=== PATIENT | female | born 1955 ===

== ENCOUNTER 2025-06-06 07:00 | Inpatient (IN) | payer OTHER ==
[~2025-06-06] VITALS: Ht 152.4 cm; Wt 74.8 kg
[2025-06-06] MEDS ORDERED: TOPROL XL25 M1 (07:10)
[2025-06-06] MEDS ORDERED: PRILOSEC OTC20 MG (07:11)
[2025-06-06] MEDS ORDERED: CATAFLAN (07:11)
[2025-06-06] MEDS ORDERED: ZYRTEC10 M3 PO (07:11)
[2025-06-06] MEDS ORDERED: TRAMADOL HCL50 MG (07:12)
[2025-06-06 07:44] VITALS: BP 141/84
[2025-06-06 08:11] LABS: BASO % 0.7 % (0.1-1.2); EOS # 0.09 (0.04-0.54); EOS % 1.6 % (0.7-7.0); LYMPH # 1.15 (1.18-3.74); LYMPH % 20.4 % (19.3-53.1); MEAN PLATELET VOLUME 10.70 fl (9.4-12.4); MONO # 0.62 (0.24-0.82); MONO % 11.0 % (4.7-12.5); NEUT # 3.71 (1.56-6.13); NEUT % 65.9 % (34.0-71.1); RED CELL DISTRIBUTION WIDTH 12.0 % (11.6-14.4)
[2025-06-06 08:20] LABS: URINE APPEARANCE Clear; URINE BILIRRUBIN Negative (NEGATIVE); URINE BLOOD Moderate; URINE COLOR Dark Yellow; URINE GLUCOSE Negative (NEGATIVE); URINE KETONE Trace (NEGATIVE); URINE LEUKOCYTE Small; URINE NITRATE Negative; URINE PROTEIN Trace (NEGATIVE); URINE UROBILINOGEN 1.0 E.U./dl
[2025-06-06 08:24] LABS: URINE BACTERIA 397.1 uL (0.0-1933); URINE EPITHELIAL CELLS 53.0 uL (0.0-38.8); URINE RBC 117.1 uL (0.0-20.8); URINE WBC 87.2 uL (0.0-23.2)
[2025-06-06 08:43] LABS: INR 1.01
[2025-06-06 08:59] LABS: ALT/SGPT 29.0 U/L (12-78); AST/SGOT 18.0 U/L (15-37); BILIRUBIN TOTAL 0.67 mg/dL (0.3-1.2); BUN CREA RATIO 21.0 (7.0-25.0); CREATININE SERUM 0.86 mg/dL (0.55-1.02); GFR 65.05; GLOBULINA 3.5 G/DL (2.4-3.5); GLUCOSE FASTING 114.0 mg/dL (65-100); OSMOLALITY SERUM 290.0 MOSM/KG (275-295)
[2025-06-06 09:03] LABS: URINE CAST 0.29 uL (0.0-1.40)
[2025-06-06 09:04] LABS: URINE MUCUS MODERATE
[2025-06-13] MEDS ORDERED: CEFAZOLIN SODIUM 1,000 MG VIAL ONE (07:06)
[2025-06-13] MEDS ORDERED: TRANEXAMIC ACID 100MG/1ML (1000MG) AMPUL ONE (07:07)
[2025-06-13] MEDS ORDERED: KETOROLAC TROMETHAMINE 60 MG VIAL IM ONE (07:11)
[2025-06-13] MEDS ORDERED: LIDOCAINE HCL 1%/EPINEPHRINE 20ML VIAL IJ ONE (07:12)
[2025-06-13] MEDS ORDERED: BUPIVACAINE HCL/MPF 0.5% 30ML VIAL ONE (07:12)
[2025-06-13] MEDS ORDERED: ISOPROPYL ALCOHOL 30 ML OUNCE TOP ONE (07:12)
[2025-06-13] MEDS ORDERED: POVIDONE-IODINE 118 ML BOTT TOP ONE (07:12)
[2025-06-13] MEDS ORDERED: ONDANSETRON HCL 2 MG/ML VIAL IV PRN (09:30)
[2025-06-13] MEDS ORDERED: OxyCODONE HCL 5 MG TABLET (ROXICODONE) PO SCH (12:00)
[2025-06-13] MEDS ORDERED: MORPHINE SULFATE 4 MG/ML CARTRIDGE IV SCH (12:00)
[2025-06-13] MEDS ORDERED: CEFAZOLIN SODIUM 1,000 MG VIAL IV SCH (12:00)
[2025-06-13 14:12] VITALS: BP 153/87; O2SAT 96
[2025-06-13 16:00] VITALS: BP 139/78; O2SAT 98
[2025-06-13] MEDS ORDERED: ORPHENADRINE CITRATE 100 MG TABLET PO SCH (21:00)
[2025-06-13] MEDS ORDERED: GABAPENTIN 100 MG CAPSULE PO SCH (21:00)
[2025-06-13 23:39] VITALS: BP 124/69; O2SAT 97
[2025-06-14 05:14] LABS: BASO % 0.3 % (0.1-1.2); EOS # 0.07 (0.04-0.54); EOS % 1.1 % (0.7-7.0); LYMPH # 1.30 (1.18-3.74); LYMPH % 21.0 % (19.3-53.1); MEAN PLATELET VOLUME 10.40 fl (9.4-12.4); MONO # 0.71 (0.24-0.82); MONO % 11.5 % (4.7-12.5); NEUT # 4.07 (1.56-6.13); NEUT % 65.9 % (34.0-71.1); RED CELL DISTRIBUTION WIDTH 12.2 % (11.6-14.4)
[2025-06-14 08:00] VITALS: BP 135/79; O2SAT 99
[2025-06-14] MEDS ORDERED: RIVAROXABAN 10 MG TAB PO SCH (09:00)
[2025-06-14] MEDS ORDERED: ENALAPRILAT DIHYDRATE 1.25 MG/ML VIAL IV PRN (13:15)
[2025-06-14 13:34] LABS: COVID-19 AG NEGATIVE (NEGATIVE)
[2025-06-14] MEDS ORDERED: METOPROLOL SUCCINATE 25 MG TAB.SR.24H PO NR (14:00)
[2025-06-14 16:00] VITALS: BP 152/73; O2SAT 98
[2025-06-14] MEDS ORDERED: SOD FERRIC GLUC COMPLX/SUCROSE 62.5 MG/5 ML AMPUL IV SCH (17:00)
[2025-06-14] MEDS ORDERED: Cyanocobalamin/Mecobalamin 1 TAB.SL SL SCH (17:00)
[2025-06-15 00:30] VITALS: BP 135/76; O2SAT 98
[2025-06-15 06:25] LABS: BASO % 0.3 % (0.1-1.2); EOS # 0.01 (0.04-0.54); EOS % 0.1 % (0.7-7.0); LYMPH # 1.23 (1.18-3.74); LYMPH % 15.9 % (19.3-53.1); MEAN PLATELET VOLUME 10.80 fl (9.4-12.4); MONO # 0.96 (0.24-0.82); NEUT # 5.46 (1.56-6.13); NEUT % 70.8 % (34.0-71.1); RED CELL DISTRIBUTION WIDTH 12.1 % (11.6-14.4)
[2025-06-15 06:55] LABS: MONO % 12.4 % (4.7-12.5)
[2025-06-15 08:43] VITALS: BP 130/74; O2SAT 99
[2025-06-15] MEDS ORDERED: METOPROLOL SUCCINATE 25 MG TAB.SR.24H PO SCH (09:00)
[2025-06-15] MEDS ORDERED: NORFLEX100MG PO (11:47)
[2025-06-15] MEDS ORDERED: XARELTO10 MG PO (11:48)
[2025-06-15] MEDS ORDERED: GABAPENTIN100 MG PO (11:48)
[2025-06-15] MEDS ORDERED: PERCOCET 5-3251 EACH PO (11:48)
[2025-06-15 16:00] VITALS: BP 120/73; O2SAT 95
== END 2025-06-15 17:27 | DRG 470 ==
LOC: SURH 06-13 06:00 → O/R 06-13 06:00 → SURH 06-13 07:00
PROVIDERS: ADMIT Orthopaedic Surgery; ATTEND Orthopaedic Surgery
PROC: 0SRC0JZ Replacement of Right Knee Joint with Synthetic Substitute, Open Approach (ICD-10-PCS; principal; 2025-06-13 07:00)
DX: M17.11 Unilateral primary osteoarthritis, right knee (principal); D62 Acute posthemorrhagic anemia; M85.661 Other cyst of bone, right lower leg; I10 Essential (primary) hypertension